=== PATIENT | male | born 2000 | race Caucasian/White ===

== ENCOUNTER 2024-04-25 14:40 | Emergency (ER) | payer OTHER ==
[~2024-04-25] VITALS: Ht 182.9 cm; Wt 74.8 kg
[2024-04-25 15:40] LABS: KETONE, URINE AUTO RFX NEGATIVE (NEGATIVE); MUCUS, URINE RFX SMALL (NEGATIVE); NITRITE, URINE AUTO RFX NEGATIVE (NEGATIVE); RBC, URINE AUTO RFX 2 /HPF (0-3); SQUAM EPITHELIAL CELL UR AURFX 0 /HPF (0-6)
[2024-04-25 15:42] LABS: LEUKOCYTE ESTERASE UR AUTO RFX 1+ (NEGATIVE); WBC, URINE AUTO RFX 47 /HPF (0-3)
[2024-04-25 16:43] LABS: Trichomonas vaginalis (AMP) NOT DETECTED (NEGATIVE)
[2024-04-25 17:07] LABS: GC DNA AMPLIFICATION NEGATIVE (NEGATIVE)
[2024-04-25 17:10] LABS: HEPATITIS B SURFACE ANTIBODY POSITIVE (POSITIVE)
[2024-04-25 17:23] LABS: HEPATITIS B SURFACE ANTIGEN NEGATIVE (NEGATIVE)
[2024-04-25 17:36] LABS: HIV 1&2 SCREEN NEGATIVE (NEGATIVE)
[2024-04-25] MEDS ORDERED: DOXY-441 PO (17:59)
[2024-04-25] MEDS ORDERED: cefTRIAXone SOD 1 GM in DEXTROSE 5% (D5W) ADV/MINI-BAG 50 ML IM ONE (18:00)
[2024-04-25] MEDS: LIDOCAINE 1% SDV 5ML VIAL DILUENT ONE ×2 (18:21→18:38)
[2024-04-25] MEDS: DOXYCYCLINE HYCLATE 100MG TABLET PO ONE (18:21)
[2024-04-25 18:27] VITALS: BP 133/77; TEMP 97.6; O2SAT 99
[2024-04-25] MEDS: cefTRIAXone 500MG VIAL IM ONE (18:38)
== END 2024-04-25 18:59 | disposition home or self-care (01) ==
LOC: M ED 14:40
DX: R36.9 Urethral discharge, unspecified (principal); Z88.0 Allergy status to penicillin; Z88.5 Allergy status to narcotic agent; Z79.2 Long term (current) use of antibiotics
CPT/HCPCS: 81001; 86706; 86780; 86803; 87086; 87340; 87389; 87661; 87810; 87850; 96372; 99283; J0696